=== PATIENT | female | born 1955 | race Caucasian/White ===

== ENCOUNTER 2022-02-22 09:42 | Emergency (ER) | payer OTHER ==
[~2022-02-22] VITALS: Ht 170.2 cm; Wt 68.0 kg
[2022-02-22] MEDS ORDERED: AMOX1TAB5 PO (11:01)
[2022-02-22] MEDS ORDERED: MUPIROCIN22 GM TOP (11:01)
== END 2022-02-22 11:06 | disposition home or self-care (01) ==
LOC: ER 09:42
DX: S01.85XA Open bite of other part of head, initial encounter (principal); W57.XXXA Bitten or stung by nonvenomous insect and other nonvenomous arthropods, initial encounter; Y93.89 Activity, other specified; Y92.091 Bathroom in other non-institutional residence as the place of occurrence of the external cause